=== PATIENT | male | born 1945 | race Caucasian/White ===

== ENCOUNTER → 2020-05-28 | Day surgery (SDC) | payer OTHER ==
[~2020-05-28] MED LIST: ASA81BEC PO; CEPHALEXIN 500500 M2 PO; EZETIMIBE10 MG PO; FISH OIL 500 M1 EAC2 PO; FLUTICASONE PRO16 GM NASAL; IBUPROFEN 800800 M1 PO; LANTUS; LANTUS SUBQ; LISINOPRIL10 MG PO; NORCO 5-325 TA1 EAC2 PO; NOVOLOG100 UNIT/1; NOVOLOG100 UNIT/1 SUBQ; OCUVITE LUTEIN1 EAC1 PO
[2020-05-28 11:28] LABS: HEMATOCRIT 42.3 % (42.0-52.0); HEMOGLOBIN 14.1 gm/dL (14.0-18.0); MCH 29.6 pg (26.0-34.0); MCHC 33.3 g/dL (28.0-37.0); MCV 88.9 fL (80.0-100.0); MPV 8.3 fl. (7.2-11.1); RBC 4.76 mil/uL (4.50-6.00); RDW-CV 13.4 % (10.5-14.5); WBC 6.5 thou/uL (4.0-11.0)
[2020-05-28 11:35] LABS: CALCIUM 8.9 mg/dL (8.5-10.1); POTASSIUM 4.6 mmol/L (3.5-5.1)
--- NOTE | 2020-05-28 16:46 | EKG ---
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[id number] Requested By: Jonathan Gomez Order Number: [id number] Evie MD: Humphrey Iglesias Measurements Intervals [place] Rate: 81 P: 58 AK: 157 QRS: -34 QRSD: 96 T: 94 QT: 389 QTc: 452 Interpretive Statements Sinus rhythm Inferior infarct, old Lateral leads are also involved No previous ECG available for comparison Electronically Signed On 05-28-2020 16:46:02 CDT by Humphrey Iglesias [email or web address] <ELECTRONICALLY SIGNED> By: Humphrey Iglesias MD, [facility] 05/28/20 1646 1133 113 Humphrey Iglesias MD, [facility] /EPI
--- NOTE | 2020-05-30 09:50 | OP ---
[facility] [address] [place] [address] OPERATIVE REPORT Name: CELENAMOISES D Room: [facility]#: [id number] Admission: 05/28/20 Attend Phys: Jonathan Gomez Discharge: Date of : 47 Report #: [id number] THIS REPORT FOR: //name// cc: Ana Marrero MD, Kandice L. MD ~ CC: Jonathan Marrero DATE OF SERVICE: 05/28/2020 PREOPERATIVE DIAGNOSIS: Incarcerated ventral incisional hernia. POSTOPERATIVE DIAGNOSIS: Incarcerated ventral incisional hernia. OPERATION: Laparoscopic repair of incarcerated ventral incisional hernia with mesh. SURGEON: Jonathan Gomez MD ANESTHESIA: General. ESTIMATED BLOOD LOSS: Minimal. SPECIMEN: None. DESCRIPTION OF PROCEDURE: After informed consent was obtained, the patient was brought to the operating room and placed supine. SCDs were placed and working, preoperative antibiotics were administered, general anesthesia was induced. The abdomen was prepped and draped in the usual sterile fashion. A 5 mm incision was made in the left upper quadrant. A 5 mm trocar was placed under direct vision. Pneumoperitoneum was established. Left sided 8 mm trocar and a right sided 5 mm trocar was placed. He had incarcerated omentum in the hernia defect, this was all reduced. Hernia defect measured approximately 1.5 cm. A 11 cm Bard Ventralight mesh was inserted in the abdomen. It was brought to the abdominal wall and tacked with approximately 35 absorbable tacks. This covered the defect widely. A 2-0 Ethibond suture was placed in the midline superiorly on the mesh using a PMI suture passer. The ports were then removed under direct vision. The skin was closed with 4-0 Monocryl. Incisions were sealed with Dermabond. COMPLICATIONS: [place] [address] OPERATIVE REPORT Name: MOISES DALLAS Room: [facility]#: [id number] Admission: 05/28/20 Attend Phys: Jonathan Gomez Discharge: Date of : 47 Report #: [id number] DISPOSITION: The patient was taken to recovery in satisfactory condition. <ELECTRONICALLY SIGNED> By: Jonathan Gomez MD 05/30/20 0950 1339 [id number] Gomez MD /nt
== END | disposition home or self-care (01) ==
LOC: M.SUR 09:31
PROVIDERS: ATTEND Surgery
DX: K43.0 Incisional hernia with obstruction, without gangrene (principal); Z20.828 Contact with and (suspected) exposure to other viral communicable diseases; E11.9 Type 2 diabetes mellitus without complications; Z79.4 Long term (current) use of insulin; Z79.899 Other long term (current) drug therapy; Z79.82 Long term (current) use of aspirin; Z98.890 Other specified postprocedural states